=== PATIENT | male | born 1975 | race African-American/Black ===

== ENCOUNTER 2019-05-03 12:20 | Emergency (ER) | payer OTHER ==
[~2019-05-03] VITALS: Ht 177.8 cm; Wt 122.5 kg
[~2019-05-03 12:20] MED LIST: PROZAC10 M1 PO; SEROQUEL 50 MG50 M1 PO; XARELTO15 MG PO
[2019-05-03] MEDS ORDERED: XARELTO15 MG PO (12:23)
[2019-05-03] MEDS ORDERED: LIPITOR10 MG PO (12:24)
[2019-05-03 12:45] VITALS: BP 148/93
== END 2019-05-03 12:45 | disposition home or self-care (01) ==
LOC: ER 12:20
DX: Z00.00 Encounter for general adult medical examination without abnormal findings (principal); F17.210 Nicotine dependence, cigarettes, uncomplicated; Z86.718 Personal history of other venous thrombosis and embolism; Z91.030 Bee allergy status; Z88.0 Allergy status to penicillin